=== PATIENT | female | born 1970 | race American Indian/Alaskan Native ===

== ENCOUNTER 2016-09-22 08:29 | Emergency (ER) | payer BC ==
[2016-09-22 08:49] VITALS: BP 154/85
[2016-09-22 09:11] LABS: Hematocrit 39.4 % (30.3-42.9); Hemoglobin 12.5 gm/dl (10.1-14.3); Mean Corpuscular HGB Conc 32 % (30-34); Mean Corpuscular Volume 75 fl (79-97); Platelet Count 132 K/mm3 (140-440); Red Blood Count 5.27 M/mm3 (3.65-5.03); Red Cell Distribution Width 15.2 % (13.2-15.2); White Blood Count 4.2 K/mm3 (4.5-11.0)
[2016-09-22 09:18] LABS: Mean Corpuscular Hemoglobin 24 pg (28-32)
[2016-09-22 09:26] LABS: Anion Gap 17 mmol/L; BUN/Creatinine Ratio 23.33; Blood Urea Nitrogen 14 mg/dL (7-17); Calcium 8.9 mg/dL (8.4-10.2); Carbon Dioxide 25 mmol/L (22-30); Chloride 98.7 mmol/L (98-107); Glucose 130 mg/dL (65-100); Potassium 3.7 mmol/L (3.6-5.0); Sodium 137 mmol/L (137-145)
--- NOTE | 2016-09-22 11:02 | XRay Report ---
Chest 2 views: Compared to 02/15/16. History: Shortness of breath. Findings: No significant interval change in cardiopulmonary findings compared to previous study. No acute consolidation or pleural effusion. Impression: No significant interval change.
[2016-09-22 12:06] LABS: Basophils % (Manual) 0 % (0.0-1.8); Blastocytes % (Manual) 0 %
[2016-09-22 12:07] LABS: Anisocytosis 1+; Diff Status Complete; Hypochromasia 1+; Platelet Estimate Consistent w Auto
--- NOTE | 2016-09-25 15:14 | ED Elopement Review ---
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 Diff Complete Total Counted 100 Seg Neuts % (Manual) 70.0 Band Neutrophils % 0 Lymphocytes % (Manual) 17.0 Reactive Lymphs % (Man) 0 Monocytes % (Manual) 10.0 H Eosinophils % (Manual) 2.0 Basophils % (Manual) 0 Metamyelocytes % 1.0 Myelocytes % 0 Promyelocytes % 0 Blast Cells % 0 Nucleated RBC % Not Reportable Seg Neutrophils # Man 2.9 Band Neutrophils # 0.0 Lymphocytes # (Manual) 0.7 L Abs React Lymphs (Man) 0.0 Monocytes # (Manual) 0.4 Eosinophils # (Manual) 0.1 Basophils # (Manual) 0.0 Metamyelocytes # 0.0 Myelocytes # 0.0 Promyelocytes # 0.0 Blast Cells # 0.0 WBC Morphology Not Reportable Hypersegmented Neuts Not Reportable Hyposegmented Neuts Not Reportable Hypogranular Neuts Not Reportable Smudge Cells Not Reportable Toxic Granulation Not Reportable Toxic Vacuolation Not Reportable Dohle Bodies Not Reportable Pelger-Huet Anomaly Not Reportable Jona Rods Not Reportable Platelet Estimate Consistent w auto Clumped Platelets Not Reportable Plt Clumps, EDTA Not Reportable Large Platelets Not Reportable Giant Platelets Not Reportable Platelet Satelliting Not Reportable Plt Morphology Comment Not Reportable RBC Morphology Not Reportable Dimorphic RBCs Not Reportable Polychromasia Not Reportable Hypochromasia 1+ Poikilocytosis Not Reportable Anisocytosis 1+ Microcytosis Not Reportable Macrocytosis Not Reportable Spherocytes Not Reportable Pappenheimer Bodies Not Reportable Sickle Cells Not Reportable Target Cells Not Reportable Tear Drop Cells Not Reportable Ovalocytes Not Reportable Helmet Cells Not Reportable [place] Bodies Not Reportable [place] Rings Not Reportable [place] Cells Not Reportable Bite Cells Not Reportable Crenated Cell Not Reportable Elliptocytes Not Reportable Acanthocytes (Spur) Not Reportable Rouleaux Not Reportable Hemoglobin C Crystals Not Reportable Schistocytes Not Reportable Malaria parasites Not Reportable Simon Bodies Not Reportable Hem Pathologist Commnt No Sodium 137 Potassium 3.7 Chloride 98.7 Carbon Dioxide 25 Anion Gap 17 BUN 14 Creatinine 0.6 L Estimated GFR > 60 BUN/Creatinine Ratio 23.33 Glucose 130 H Calcium 8.9 Troponin T < 0.010 HCG, Qual Negative - Call Back decision Pt Call Back Decision: No action required
== END 2016-09-22 19:41 | disposition left against medical advice (07) ==
LOC: ED 08:29
DX: M79.1 Myalgia (principal); R07.89 Other chest pain; R09.81 Nasal congestion; Z53.21 Procedure and treatment not carried out due to patient leaving prior to being seen by health care provider
CPT/HCPCS: 36415; 71020; 80048; 84484; 84703; 85007; 85025; 93005; 93010

== ENCOUNTER 2017-02-22 13:51 | Emergency (ER) | payer BC ==
[2017-02-22] MEDS ORDERED: DUONEB *Not for PRN Use IH ONE (16:50)
[2017-02-22] MEDS ORDERED: DELTASONE PO ONE (16:50)
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
--- NOTE | 2017-02-22 18:31 | XRay Report ---
FINAL REPORT EXAM: XR CHEST ROUTINE 2V HISTORY: sob wheezing TECHNIQUE: PA and lateral chest radiographs PRIORS: None. FINDINGS: In the lateral view the lungs appear hyperinflated with flattening of the hemidiaphragms noted.No focal consolidations are seen in the lungs and there are no pleural effusions.The cardiomediastinal silhouette is within normal limits for size and contour. No acute osseous abnormality is identified. IMPRESSION: 1. Hyperinflation. 2. No focal infiltrate is identified.
[2017-02-22 18:58] VITALS: BP 159/90
== END 2017-02-22 19:01 | disposition home or self-care (01) ==
LOC: ED 13:51
DX: J45.30 Mild persistent asthma, uncomplicated (principal); J00 Acute nasopharyngitis [common cold]; I10 Essential (primary) hypertension
CPT/HCPCS: 71020; 94640; 99283; J7512

== ENCOUNTER 2017-07-13 09:04 | Emergency (ER) | payer BC ==
[2017-07-13 09:22] VITALS: BP 134/72
[2017-07-13 12:00] LABS: Bilirubin,Urine NEG (Negative); Blood,Urine SM (Negative); Color,Urine Yellow (Yellow); Mucus,Urine FEW /HPF; Nitrite,Urine NEG (Negative); Protein,Urine <15 mg/dL mg/dL (Negative); Urobilinogen,Urine < 2.0 mg/dL (<2.0)
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
== END 2017-07-13 12:20 | disposition home or self-care (01) ==
LOC: ED 09:04
DX: M72.2 Plantar fascial fibromatosis (principal); I10 Essential (primary) hypertension; J45.909 Unspecified asthma, uncomplicated; F17.200 Nicotine dependence, unspecified, uncomplicated
CPT/HCPCS: 81001; 82962; 99282

== ENCOUNTER 2017-10-25 06:43 | Emergency (ER) | payer BC ==
[2017-10-25 07:03] VITALS: BP 145/85
[2017-10-25] MEDS ORDERED: DUONEB *Not for PRN Use IH ONE ×2 (07:08→07:13)
[2017-10-25] MEDS ORDERED: DELTASONE PO ONE (08:23)
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
--- NOTE | 2017-10-25 11:19 | XRay Report ---
CHEST 2 VIEWS INDICATION: Difficulty breathing. COMPARISON: 04/06/2017 FINDINGS: Frontal and lateral chest radiographs demonstrate stable cardiomediastinal silhouette. Clear lung bases, better penetrated. No significant pleural effusions or CHF now suspected. Stable bones. CONCLUSION: No significant acute chest process, as described. Thank you for the opportunity to participate in this patient's care.
== END 2017-10-25 10:12 | disposition home or self-care (01) ==
LOC: ED 06:43
DX: J45.909 Unspecified asthma, uncomplicated (principal); I10 Essential (primary) hypertension; F17.200 Nicotine dependence, unspecified, uncomplicated
CPT/HCPCS: 71046; 99283; J7512